=== PATIENT | female | born 1940 | race Caucasian/White ===

== ENCOUNTER 2016-08-16 17:27 | Emergency (ER) | payer MEDICARE ==
[2016-08-16] MEDS ORDERED: OXYMETAZOLINE 0.05% NASL SPRAY 15 ML NASAL STA (18:25)
[2016-08-16] MEDS ORDERED: cloNIDine HCL 0.1 MG TAB PO STA (18:25)
--- NOTE | 2016-08-16 19:01 | ED ---
ENT HPI - General Chief complaint: ENT Stated complaint: nose bleed Time Seen by Provider: 08/16/16 18:09 Source: patient, family, RN notes reviewed, old records reviewed Mode of arrival: wheelchair Limitations: no limitations - History of Present Illness Initial comments: 76-year-old female chief complaint of nosebleed for the past 30 minutes. Patient reports that she is on eliquis for chronic A. fib. She states that she was bending over to tie her shoe when she notices started to bleed. Denies swallowing blood. Denies cough, chest pain, dizziness, shortness of breath, vision changes, nausea, vomting. - Related Data Home Medications Medication Instructions Recorded Confirmed Apixaban [Eliquis] 5 mg PO BID 08/16/16 08/16/16 Benazepril HCl 40 mg PO DAILY 08/16/16 08/16/16 Cholecalciferol [Vitamin D3] 5,000 unit PO MOWEFR 08/16/16 08/16/16 Folic Acid 0.8 mg PO DAILY 08/16/16 08/16/16 Gabapentin [Neurontin] 300 mg PO HS 08/16/16 08/16/16 Hydrochlorothiazide 25 mg PO DAILY 08/16/16 08/16/16 Levothyroxine Sodium [Synthroid] 100 mcg PO DAILY 08/16/16 08/16/16 Metoprolol Tartrate [Lopressor] 100 mg PO BID 08/16/16 08/16/16 Sertraline HCl [Zoloft] 50 mg PO DAILY 08/16/16 08/16/16 Solifenacin Succinate [Vesicare] 10 mg PO DAILY 08/16/16 08/16/16 Ubidecarenone [Co Q-10] 100 mg PO MOWEFR 08/16/16 08/16/16 Allergies Allergy/AdvReac Type Severity Reaction Status Date / Time ibuprofen [From Motrin] Allergy Nausea & Verified 08/16/16 18:32 Vomiting Review of Systems ROS Statement: Those systems with pertinent positive or pertinent negative responses have been documented in the HPI. ROS Other: All systems not noted in ROS Statement are negative. Past Medical History Past Medical History: Atrial Fibrillation, Hypertension Additional Past Medical History / Comment(s): anemic History of Any Multi-Drug Resistant Organisms: None Reported Past Surgical History: Section, Hysterectomy Past Psychological History: No Psychological Hx Reported Smoking Status: Never smoker Past Alcohol Use History: Rare Past Drug Use History: None Reported General Exam Limitations: no limitations General appearance: alert, in no apparent distress Head exam: Present: atraumatic, normocephalic, normal inspection Eye exam: Present: normal appearance, PERRL, EOMI. Absent: scleral icterus, conjunctival injection, periorbital swelling ENT exam: Present: normal exam, mucous membranes moist, TM's normal bilaterally , other (erythematous nasal turbinates. No bleeding vessel noted. ) Neck exam: Present: normal inspection. Absent: tenderness, meningismus, lymphadenopathy Respiratory exam: Present: normal lung sounds bilaterally. Absent: respiratory distress, wheezes, rales, rhonchi, stridor Cardiovascular Exam: Present: regular rate, normal rhythm, normal heart sounds. Absent: systolic murmur, diastolic murmur, rubs, gallop, clicks GI/Abdominal exam: Present: soft, normal bowel sounds. Absent: distended, tenderness, guarding, rebound, rigid Extremities exam: Present: normal inspection, full ROM, normal capillary refill. Absent: tenderness, pedal edema, joint swelling, calf tenderness Back exam: Present: normal inspection Neurological exam: Present: alert, oriented X3, CN II-XII intact Psychiatric exam: Present: normal affect, normal mood Skin exam: Present: warm, dry, intact, normal color. Absent: rash Course Vital Signs 08/16/16 08/16/16 17:31 19:18 Temperature 97.8 F 98.1 F Pulse Rate 85 69 Respiratory 20 18 Rate Blood Pressure 182/79 165/74 O2 Sat by Pulse 99 97 Oximetry Medical Decision Making - Medical Decision Making 76-year-old female chief complaint of nosebleed for the past 30 minutes. Patient reports that she is on eliquis for chronic A. fib. She states that she was bending over to tie her shoe when she notices started to bleed. Denies swallowing blood. Denies cough, chest pain, dizziness, shortness of breath, vision changes, nausea, vomting. Patient was initially placed with clamp. Paitent nose was evaluated, bleeding as stopped. Patient then waited 20 minutes and bleeding did not resume. Patient was given Afrin and advised if bleeding reooccurs to use a spray of the Afrin and reapply clamp for 30 minutes. Advised to get normal saline spray. REturn parameters discussed. Disposition Clinical Impression: Bleeding nose Disposition: HOME SELF-CARE Condition: Good Instructions: Nosebleed (ED) Additional Instructions: Patient advised to purchase normal saline spray and use of bilateral nostrils each day. If the nosebleed does recur apply a spray of Afrin and use the nasal clamp for 30 minutes. If it continues to bleed afterwards retry for a second time. The continues to bleed after that come to the emergency department. Patient advised to follow-up with her primary care provider within the next week. Return to the emergency department if any alarming signs or symptoms occur. Referrals: Gabriela Collier MD [Primary Care Provider] - 1-2 days Time of Disposition: 19:01
[2016-08-16 19:19] VITALS: BP 165/74; PULSE 69; RESP 18; TEMP 98.1
== END 2016-08-16 19:20 | disposition home or self-care (01) ==
LOC: EC 17:27
DX: R04.0 Epistaxis (principal); I10 Essential (primary) hypertension; I48.91 Unspecified atrial fibrillation; Z79.01 Long term (current) use of anticoagulants; Z79.899 Other long term (current) drug therapy; Z88.6 Allergy status to analgesic agent
CPT/HCPCS: 99283

== ENCOUNTER → 2021-02-07 | Outpatient (CLI) | payer MEDICARE ==
[~2021-02-07] MED LIST: CASIRIVIMAB (REGN10933) (EUA) 600 MG, IMDEVIMAB (REGN10987) (EUA) 600 MG in SODIUM CHLO... IVPB ONE; SODIUM CHLORIDE 0.9% 50 ML IVPB ONE; SODIUM CHLORIDE 0.9% 500 ML 500 ML in EMPTY BAG 1 BAG IV PRN
[2021-02-07 10:46] VITALS: TEMP 96.6
[2021-02-07 10:51] VITALS: BP 163/85; PULSE 71; RESP 16
== END | disposition home or self-care (01) ==
LOC: PROCWHC3 09:49
DX: U07.1 COVID-19 (principal)
CPT/HCPCS: 96360; Q0244; M0243

== ENCOUNTER 2022-06-17 18:40 | Emergency (ER) | payer MEDICARE ==
[2022-06-17 19:23] VITALS: BP 164/59; PULSE 57; RESP 18; TEMP 98.2
--- NOTE | 2022-06-17 19:24 | ED ---
Fall HPI - General Chief Complaint: Fall Stated Complaint: fall - head injury Time Seen by Provider: 06/17/22 19:24 Source: patient Mode of arrival: wheelchair - History of Present Illness Initial Comments: Patient is an 18-year-old female presenting for evaluation post fall. Patient had a fall yesterday around 5 PM. States that she lost her balance and fell and hit her face on the ground. She is on eliquis. No loss of consciousness. Patient has been asymptomatic, no headache, vision or hearing changes, nausea, vomiting, dizziness, numbness, tingling, weakness. She was seen by her PCP today for routine hemoglobin recheck, he advised that she report to the ER for imaging. Patient is having bruising under the bilateral eyes. No neck pain. Patient otherwise feels well. - Related Data Home Medications Medication Instructions Recorded Confirmed Apixaban [Eliquis] 5 mg PO BID 08/16/16 08/16/16 Benazepril HCl 40 mg PO DAILY 08/16/16 08/16/16 Cholecalciferol [Vitamin D3] 5,000 unit PO MOWEFR 08/16/16 08/16/16 Folic Acid 0.8 mg PO DAILY 08/16/16 08/16/16 Gabapentin [Neurontin] 300 mg PO HS 08/16/16 08/16/16 Levothyroxine Sodium [Synthroid] 100 mcg PO DAILY 08/16/16 08/16/16 Metoprolol Tartrate [Lopressor] 100 mg PO BID 08/16/16 08/16/16 Sertraline HCl [Zoloft] 50 mg PO DAILY 08/16/16 08/16/16 Solifenacin Succinate [Vesicare] 10 mg PO DAILY 08/16/16 08/16/16 Ubidecarenone [Co Q-10] 100 mg PO MOWEFR 08/16/16 08/16/16 hydroCHLOROthiazide 25 mg PO DAILY 08/16/16 08/16/16 Allergies Allergy/AdvReac Type Severity Reaction Status Date / Time ibuprofen [From Motrin] Allergy Nausea & Verified 06/17/22 19:23 Vomiting Review of Systems ROS Statement: Those systems with pertinent positive or pertinent negative responses have been documented in the HPI. ROS Other: All systems not noted in ROS Statement are negative. Past Medical History Past Medical History: Atrial Fibrillation, Hypertension Additional Past Medical History / Comment(s): anemic History of Any Multi-Drug Resistant Organisms: None Reported Past Surgical History: Section, Hysterectomy Past Psychological History: No Psychological Hx Reported Smoking Status: Never smoker Past Alcohol Use History: Rare Past Drug Use History: None Reported General Exam Limitations: no limitations General appearance: alert, in no apparent distress Head exam: Present: atraumatic, normocephalic, normal inspection Eye exam: Present: normal appearance, PERRL, EOMI. Absent: periorbital swelling Neck exam: Present: normal inspection, full ROM Respiratory exam: Present: normal lung sounds bilaterally. Absent: respiratory distress, wheezes, rales, rhonchi, stridor Cardiovascular Exam: Present: regular rate, normal rhythm, normal heart sounds. Absent: systolic murmur, diastolic murmur, rubs, gallop, clicks Neurological exam: Present: alert, oriented X3, CN II-XII intact Expanded Speech: Present: fluid speech Cranial nerves: EOM's Intact: Normal, Facial Sensation: Normal Sensory exam: Upper Extremity Light Touch: Normal, Lower Extremity Light Touch: Normal Motor strength exam: RUE: 5, LUE: 5, RLE: 5, LLE: 5 Eye Response: (4) open spontaneously Motor Response: (6) obeys commands Verbal Response: (5) oriented Herman Total: 15 Psychiatric exam: Present: normal affect, normal mood Skin exam: Present: warm, dry, intact, normal color. Absent: rash Course Vital Signs 06/17/22 19:16 Temperature 98.2 F Pulse Rate 57 L Respiratory 18 Rate Blood Pressure 164/59 O2 Sat by Pulse 99 Oximetry Medical Decision Making - Medical Decision Making Was pt. sent in by a medical professional or institution (, PA, CROSS TIE TRAM LOADER, urgent ca re, hospital, or snf...) When possible be specific @ -Patient sent in by her PCP Did you speak to anyone other than the patient for history (EMS, parent, family, police, friend...)? What history was obtained from this source @ -History supplemented by family members Did you review nursing and triage notes (agree or disagree)? Why? @ -[I reviewed and agree with nursing and triage notes] Were old charts reviewed (outside hosp., previous admission, EMS record, old EKG, old radiological studies, urgent care reports/EKG's, snf records)? Report findings @ -[No old charts were reviewed] Differential Diagnosis (chest pain, altered mental status, abdominal pain women, abdominal pain men, vaginal bleeding, weakness, fever, dyspnea, syncope, headache, dizziness, GI bleed, back pain, seizure, CVA, palpatations, mental health, musculoskeletal)? @ -Differential includes intracranial bleed, skull fracture, cervical spine fracture, facial bone fracture,this is not an all-inclusive list EKG interpreted by me (3pts min.). @ -[As above] X-rays interpreted by me (1pt min.). @ -[None done] CT interpreted by me (1pt min.). @ -CT of the brain, cervical spine, and facial bones shows no fracture, no acute intracranial process. U/S interpreted by me (1pt. min.). @ -[None done] What testing was considered but not performed or refused? (CT, X-rays, U/S, labs)? Why? @ -[None] What meds were considered but not given or refused? Why? @ -[None] Did you discuss the management of the patient with other professionals (professionals i.e. , PA, CROSS TIE TRAM LOADER, lab, RT, psych nurse, transition social worker, armored vehicle officer, teacher, public information officer, case investigator)? Give summary @ -[No] Was smoking cessation discussed for >3mins.? @ -[No] Was critical care preformed (if so, how long)? @ -[No] Were there social determinants of health that impacted care today? How? (Homelessness, low income, unemployed, alcoholism, drug addiction, transportation, low edu. Level, literacy, decrease access to med. care, skilled nursing, rehab)? @ -[No] Was there de-escalation of care discussed even if they declined (Discuss DNR or withdrawal of care, Hospice)? DNR status @ -[No] What co-morbidities impacted this encounter? (DM, HTN, Smoking, COPD, CAD, Cancer, CVA, ARF, Chemo, Hep., AIDS, mental health diagnosis, sleep apnea, morbid obesity)? @ -[None] Was patient admitted / discharged? Hospital course, mention meds given and route, prescriptions, significant lab abnormalities, going to OR and other pertinent info. @ -Discharge. Patient is a 2-year-old female presenting for evaluation after a fall that occurred yesterday. Patient lost her balance and fell hitting her face. No loss of consciousness, she is on eliquis. Patient was sent in by her PCP, she was seen there today for routine recheck of her hemoglobin, when he saw the bruising under the bilateral eyes. Eyes further evaluation. On physical examination there are no focal neurological deficits. Patient states that she feels well at this time. CT of the brain, cervical spine, and facial bones is negative. Patient and family are educated on these findings. Follow-up with PC P. Report back to ER with any new or worsening symptoms. Discussed return parameters and answered all questions. Patient conveyed verbal understanding and agreed to the plan. I discussed this case in detail with my attending Dr. Stephens Undiagnosed new problem with uncertain prognosis? @ -[No] Drug Therapy requiring intensive monitoring for toxicity (Heparin, Nitro, Insulin, Cardizem)? @ -[No] Were any procedures done? @ -[No] Diagnosis/symptom? @ -Fall Acute, or Chronic, or Acute on Chronic? @ -Acute Uncomplicated (without systemic symptoms) or Complicated (systemic symptoms)? @ -uncomplicated Side effects of treatment? @ -[No] Exacerbation, Progression, or Severe Exacerbation? @ -[No] Poses a threat to life or bodily function? How? (Chest pain, [place], [place], pneumonia, PE, COPD, DKA, ARF, appy, cholecystitis, CVA, Diverticulitis, Homicidal, Suic idal, threat to staff... and all critical care pts) @ - Disposition Clinical Impression: Fall Disposition: HOME SELF-CARE Condition: Good Instructions (If sedation given, give patient instructions): Fall Prevention for Older Adults (ED), Head Injury (ED) Additional Instructions: Follow-up with PCP. Report back to ER with any new or worsening symptoms. Is patient prescribed a controlled substance at d/c from ED?: No Referrals: Kunal Miranda DO [Primary Care Provider] - 1-2 days Time of Disposition: 21:10
--- NOTE | 2022-06-17 20:22 | CT ---
EXAMINATION TYPE: CT brain cspine wo con, CT facial bones wo con CT DLP: 1116.5 mGycm, Automated exposure control for dose reduction was used. DATE OF EXAM: 06/17/2022 7:59 PM COMPARISON: None. CLINICAL INDICATION:Female, 82 years old with history of fall; fall, facial bruising (accession [id number]), fall, facial bruising under eyes (accession [id number]) TECHNIQUE: Brain: Multiple axial CT images of the brain were obtained without IV contrast. Cspine: Axial CT images from the skull base to the inferior aspect of T2 we obtained without intraven ous contrast. Coronal and sagittal reformatted images were also reviewed. Facial: Axial imaging of the facial structures with sagittal coronal reformats. FINDINGS: Brain: Extra-axial spaces: No abnormal extra-axial fluid collections. Ventricular system: Dilatation in proportion to cerebral atrophy. Cerebral parenchyma: Cerebral atrophy. No acute intraparenchymal hemorrhage or mass effect. The wilder -white junction is well differentiated. Scattered hypoattenuating areas are seen within the white mat ter. Cerebellum: Unremarkable. Mass effect: No evidence of midline shift. Intracranial vasculature: Atherosclerotic calcifications of the intracranial vessels. Soft tissues: Right infraorbital soft tissue swelling. Fatty changes to the parotid glands bilaterall y. Calvarium/osseous structures: No depressed skull fracture. . Degeneration changes of the temporomandi bular joints bilaterally. Paranasal sinuses and mastoid air cells: Clear. Visualized orbits: Bilateral aphakia, and dilated tubular structures in the intra and extraconal fat bilaterally. Cervical spine: Fracture: None. Osseous structures: Multilevel degenerative disc disease changes with endplate spurring and disc oste ophyte complex's. C7 posterior arch bone island measuring up to 11 mm Vertebral alignment: Within normal limits. Spinal canal/Neural Foramina: No evidence of significant spinal canal narrowing. No evidence for sign ificant neural foraminal stenosis. Neck soft tissues: Prevertebral soft tissues are within normal limits. Other: The airway is patent. The lung apices are clear. IMPRESSION: 1. No acute intracranial process. 2. Right infraorbital ridge soft tissue swelling without evidence of fracture. 3. No evidence of cervical spine fracture. 4. Mild multilevel degenerative disc disease. 5. Bilateral intraconal/extraconal tubular structures could represent varices. Consider complete ramses luation with MRI orbits with IV contrast. 6. Fatty replacement of the parotid glands can be seen laterally and aging versus seen in the settin g of Sjogren's syndrome.
== END 2022-06-17 21:23 | disposition home or self-care (01) ==
LOC: EC 18:40
DX: S09.90XA Unspecified injury of head, initial encounter (principal); I10 Essential (primary) hypertension; I48.91 Unspecified atrial fibrillation; Z79.899 Other long term (current) drug therapy; Z88.8 Allergy status to other drugs, medicaments and biological substances; W01.110A Fall on same level from slipping, tripping and stumbling with subsequent striking against sharp glass, initial encounter
CPT/HCPCS: 70450; 70486; 72125; 99284